=== PATIENT | male | born 1960 | race Caucasian/White ===

== ENCOUNTER 2016-11-15 14:40 | Emergency (ER) | payer MEDICARE, OTHER ==
[~2016-11-15] VITALS: Ht 172.7 cm; Wt 72.0 kg
[2016-11-15 14:42] VITALS: BP 179/94; PULSE 76; RESP 16; TEMP 98.7; O2SAT 98
== END 2016-11-15 18:55 | disposition left against medical advice (07) ==
LOC: NED 14:40
DX: R07.81 Pleurodynia (principal)
CPT/HCPCS: 99281